=== PATIENT | male | born 1990 | race Caucasian/White ===

== ENCOUNTER 2025-01-01 13:55 | Emergency (ER) | payer OTHER, SELFPAY ==
[2025-01-01 14:01] VITALS: BP 136/86; PULSE 100; RESP 20; TEMP 37; O2SAT 100
--- NOTE | 2025-01-01 14:04 | ED.DENTAL ---
HPI - Dental/Oral General Chief complaint: Dental/Oral Stated complaint: tooth causing face swelling Time Seen by Provider: 01/01/25 14:10 Source: patient Mode of arrival: ambulatory Limitations: no limitations History of Present Illness HPI Narrative: Cj is a 34-year-old male patient presenting to the clinic today with complaints of dental pain and facial swelling x2 days. 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 Has been feeling his own teeth using [id number] dentech. States his dentech fell out over the weekend and has been having swelling since then. Has been taking amoxicillin-2 doses yesterday and 1 dose today. Swelling is now extended around his left orbit and he has maxillary tenderness. Denies any known fever but his significant other stated to him that he felt warm. Rates pain 11/13 current-throbbing pain Related Data Home Medications ?Medication ?Instructions ?Recorded ?Confirmed ?Last Taken ?Type No Home Medications 01/01/25 01/01/25 Unknown History Allergies Allergy/AdvReac Type Severity Reaction Status Date / Time POTASSIUM CLAVENULATE Allergy Intermediate Swelling Uncoded 01/01/25 14:21 Review of Systems Review of Systems: Pertinent positives per HPI. Patient denies any fever, chills, rash, headache, visual changes, dizziness, cough, runny nose, sore throat, shortness of breath, chest pain, palpitations, nausea, vomiting, diarrhea, constipation, abdominal pain, or any urinary issues. PMFSH Comments At the time of my signature, I reviewed and agree with the nursing past medical, surgical, social, and family history. There is no relevant family history pertinent to the patient complaint. Exam Narrative: General: Well-developed, well nourished, in no apparent distress Head: Normocephalic, atraumatic Eyes: Pupils equally round and reactive to light bilaterally, EOM intact, sclera and conjunctive clear, no discharge, lids normal Ears: TMs intact and clear, ear canals clear, no drainage, grossly hearing normal. Nose: Nares patent, no discharge, no inflammation, no sinus tenderness. Mouth: Oropharynx without lesions or masses, very poor dentition with multiple decayed teeth, MMM. No visualized abscess, swelling, redness, and tenderness to palpation over the left maxilla and periorbital area. Neck: Supple, trachea midline, no enlargement of anterior or posterior cervical nodes, no thyroid masses or goiter palpable. Cardio: Regular rate and rhythm, s1 and s2 normal, no murmur appreciated. Resp: Clear to auscultation bilaterally anteriorly and posteriorly, no rhonchi, rales, wheezing or rubs Course Course Emergency Course: Portions of this record may have been created with voice recognition software. Level of Care: Express Care Visit Vital Signs Vital signs: Vital Signs Temperature 37.0 C 01/01/25 14:01 Pulse Rate 100 01/01/25 14:01 Respiratory Rate 20 01/01/25 14:01 Blood Pressure 136/86 01/01/25 14:01 Pulse Oximetry 100 01/01/25 14:01 Oxygen Delivery Room Air 01/01/25 14:01 Temperature 37.0 C 01/01/25 14:01 Pulse Rate 100 01/01/25 14:01 Respiratory Rate 20 01/01/25 14:01 Blood Pressure 136/86 01/01/25 14:01 Pulse Oximetry 100 01/01/25 14:01 Oxygen Delivery Room Air 01/01/25 14:01 Vital signs reviewed Transfer Transfered to: [facility]) Transportation: Other (Private car) Transfer rationale: Higher level care- outpatient antibiotic failure- increase swelling of maxilla and periorbital area. Accepting physician: Dr. Coy Transfer comments: Private car MDM - Dental/Oral MDM Narrative Medical decision making narrative: At the time of visit patient is resting comfortably on the exam table. Patient appears to be nontoxic. Complaints of dental pain and facial swelling x2 days. 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 Has been feeling his own teeth using [id number] dentech. States his dentech fell out over the weekend and has been having swelling since then. Has been taking amoxicillin-2 doses yesterday and 1 dose today. Swelling is now extended around his left orbit and he has maxillary tenderness. Denies any known fever but his significant other stated to him that he felt warm. Rates pain 7/10 current-throbbing pain. On exam patient has very poor dentition with multiple decayed teeth. Pain to the left upper posterior molar with swelling extending into the maxilla and over the left periorbital area with tenderness. Plan: I suspect patient likely has dental abscess. Patient has taken 3 doses of amoxicillin without relief. Recommend transfer to the ER for further evaluation and he agrees to transfer. Patient would like to go to [facility] ER. Contacted Sofia MARTIN at [facility] and report was given for for cognitive care doctor Zbigniew accepts patient. Differential Diagnosis Differential diagnosis: Likely gingival abscess, dental caries, toothache, dental abscess, fracture of tooth, aphthous ulcer and other (Periorbital cellulitis) Discharge Plan Discharge Clinical Impression: Abscess, dental, Periorbital edema of left eye Patient Disposition: Acute Care Hospital Condition: Stable Instructions: Antibiotic Form Patient Language: Slovak Prescriptions: No Action No Home Medications Follow-up/Referrals: PHYSICIAN,NETWORK SUPPORT SPECIALIST [Primary Care Provider, Internal Medicine] Time of Disposition: 14:26 Quality NIHSS Nursing Documentation ED NIHSS nursing documentation: reviewed/agree
== END 2025-01-01 14:26 | disposition short-term general hospital (02) ==
PROVIDERS: Emergency Provider Nurse Practitioner Family
DX: K04.7 Periapical abscess without sinus (principal); H05.222 Edema of left orbit
CPT/HCPCS: 99212; G0463